=== PATIENT | female | born 1940 ===

== ENCOUNTER 2017-04-28 12:35 | Emergency (ER) | payer MEDICARE ==
[2017-04-28 12:35] VITALS: BMI 23.6
[2017-04-28 12:43] VITALS: BP 116/68; PULSE 60; RESP 16; TEMP 97.3; O2SAT 97
--- NOTE | 2017-04-28 12:53 | C.PDOC ---
History Of Present Illness 76 year old female presents to the ED with complaints of right ankle pain and swelling. Patient's niece states one week ago patient injured ankle while walking and patient noted yesterday injuring her right ankle again while cleaning the house. She notes a history of hypertension but denies any medical issues, LOC, or other complaints at this time. Time Seen by Provider: 04/28/17 12:50 Chief Complaint (Nursing): Lower Extremity Problem/Injury History Per: Patient, Family (niece ) History/Exam Limitations: no limitations Onset/Duration Of Symptoms: Days (original trauma one week ago, new trauma yesterday ) Current Symptoms Are (Timing): Still Present Recent travel outside of the [place]: No - Ankle/Foot Description Of Injury: Twisted Past Medical History Reviewed: Historical Data, Nursing Documentation, Vital Signs Vital Signs: Last Vital Signs Temp 97.3 F L 04/28/17 12:40 Pulse 60 04/28/17 12:40 Resp 16 04/28/17 12:40 BP 116/68 04/28/17 12:40 Pulse Ox 97 04/28/17 14:13 - Medical History PMH: Gall Bladder Disease, HTN, Hypothyroidism, Chronic Kidney Disease (BLADDER LIFT) Surgical History: Cholecystectomy - [facility] Procedures CLOSED ENDOSCOPIC BIOPSY OF LARGE INTESTINE (08/04/15) PERCUTAN NEEDLE BIOPSY OF BREAST (02/02/14) Family History: States: Unknown Family Hx - Social History Hx Alcohol Use: No Hx Substance Use: No - Immunization History Hx Tetanus Toxoid Vaccination: No Hx Influenza Vaccination: Yes Hx Pneumococcal Vaccination: Yes Review Of Systems Constitutional: Negative for: Fever, Chills, Sweats Cardiovascular: Negative for: Chest Pain, Palpitations Respiratory: Negative for: Cough, Shortness of Breath Gastrointestinal: Negative for: Nausea, Vomiting, Abdominal Pain, Diarrhea Musculoskeletal: Positive for: Other (right ankle pain and swelling ) Physical Exam - Physical Exam Appears: Non-toxic, No Acute Distress Skin: Warm, Dry Head: Atraumatic Oral Mucosa: Moist Neck: Supple Chest: Symmetrical, No Deformity Cardiovascular: Rhythm Regular Extremity: Normal ROM, Tenderness (tenderness to lateral malleolus ), No Pedal Edema, No Calf Tenderness, Capillary Refill (good capillary refill ), Swelling ( swelling to left malleolus ) Neurological/Psych: Oriented x3 ED Course And Treatment O2 Sat by Pulse Oximetry: 97 (room air ) - Other Rad Right Ankle X-Ray X-Ray: Viewed By Me, Read By Radiologist Interpretation: IMPRESSION: No acute fracture or bone destruction. Prominent plantar calcaneal spur and large dorsal calcaneal enthesophyte Disposition Counseled Patient/Family Regarding: Studies Performed, Diagnosis - Disposition Disposition: HOME/ ROUTINE Disposition Time: 14:09 Condition: STABLE Prescriptions: Naproxen [Naprosyn] 1 tab PO BID PRN #25 tab PRN Reason: Pain Instructions: Ankle Sprain (ED) Forms: Gen Discharge Inst Nepali - POA Present On Arrival: None - Clinical Impression Clinical Impression: Right ankle sprain - Scribe Statement The provider has reviewed the documentation as recorded by the Scribe Jada Wiley All medical record entries made by the Kirstyibreginaldo were at my direction and personally dictated by me. I have reviewed the chart and agree that the record accurately reflects my personal performance of the history, physical exam, medical decision making, and the department course for this patient. I have also personally directed, reviewed, and agree with the discharge instructions and disposition.
--- NOTE | 2017-04-28 13:49 | RAD ---
PROCEDURE: Right Ankle Radiographs. HISTORY: pain and swelling COMPARISON: None FINDINGS: BONES: There is no acute fracture or bone destruction. There is diffuse bone demineralization. There is a prominent plantar calcaneal spur. There is a large dorsal calcaneal enthesophyte. JOINTS: There is mild degenerative osteoarthrosis in the talonavicular joints. . Ankle mortise maintained. Talar dome intact SOFT TISSUES: Normal. OTHER FINDINGS: None. IMPRESSION: No acute fracture or bone destruction. Prominent plantar calcaneal spur and large dorsal calcaneal enthesophyte.
== END 2017-04-28 14:28 | disposition home or self-care (01) ==
LOC: C.ER 12:35
DX: S93.401A Sprain of unspecified ligament of right ankle, initial encounter (principal); X58.XXXA Exposure to other specified factors, initial encounter; Y93.E9 Activity, other interior property and clothing maintenance; Y92.009 Unspecified place in unspecified non-institutional (private) residence as the place of occurrence of the external cause

== ENCOUNTER 2018-09-24 11:51 | Emergency (ER) | payer MEDICARE ==
[2018-09-24 11:51] VITALS: BMI 23.6
[2018-09-24] MEDS ORDERED: Tetanus/Diphtheria Toxoids 0.5 ml Syringe IM ONE ×2 (12:21→13:19)
[2018-09-24] MEDS ORDERED: Lidocaine 1% Inj (20ml) INFIL STA (13:27)
[2018-09-24] MEDS ORDERED: Lidocaine Hydrochloride 5 ML INJ ONE (13:48)
--- NOTE | 2018-09-24 13:49 | CT ---
Date of service: 09/24/2018 PROCEDURE: CT HEAD WITHOUT CONTRAST. HISTORY: HEAD INJURY, R/O BLEED/FX COMPARISON: None available. TECHNIQUE: Axial computed tomography images were obtained through the head/brain without intravenous contrast. Radiation dose: Total exam DLP = 886.14 mGy-cm. This CT exam was performed using one or more of the following dose reduction techniques: Automated exposure control, adjustment of the mA and/or kV according to patient size, and/or use of iterative reconstruction technique. FINDINGS: HEMORRHAGE: No intracranial hemorrhage. BRAIN: Mild diffuse atrophy with prominence of the ventricles and sulci noted. No mass effect or edema. Bilateral basal ganglia calcifications. Dense intracranial atherosclerosis. The jacome-white matter differentiation appears intact. Please note that MRI with diffusion imaging is more sensitive in the detection of acute ischemic event. VENTRICLES: No hydrocephalus. CALVARIUM: Unremarkable. PARANASAL SINUSES: Unremarkable as visualized. No significant inflammatory changes. MASTOID AIR CELLS: Unremarkable as visualized. No inflammatory changes. OTHER FINDINGS: Frontal scalp soft tissue swelling with overlying bandage. IMPRESSION: Frontal scalp soft tissue swelling with overlying bandage. No acute intracranial pathology identified.
[2018-09-24] MEDS ORDERED: Bacitracin 500 Units/gm Oint Foilpak UD TOP ONE (14:20)
[2018-09-24] MEDS ORDERED: Bacitracin 500 Units/gm Oint Foilpak UD ONE (14:24)
--- NOTE | 2018-09-24 14:28 | C.PDOC ---
History Of Present Illness 78-year-old female presents to the ED for evaluation after she tripped and fell today. Patient states she hit her forehead on the stairs while going down steps and sustained a laceration to the area. She denies loss of consciousness, dizziness, headache, Vision change, neck pain. She states she is not up to date with her tetanus immunization, and denies use of blood thinners. Time Seen by Provider: 09/24/18 12:05 Chief Complaint (Nursing): Abnormal Skin Integrity History Per: Patient History/Exam Limitations: no limitations Onset/Duration Of Symptoms: Hrs Current Symptoms Are (Timing): Still Present Additional History Per: Patient Past Medical History Reviewed: Historical Data, Nursing Documentation, Vital Signs Vital Signs: Last Vital Signs Temp 97.1 F L 09/24/18 12:13 Pulse 64 09/24/18 12:13 Resp 20 09/24/18 12:13 BP 120/74 09/24/18 12:13 Pulse Ox 98 09/24/18 12:13 - Medical History PMH: Gall Bladder Disease, HTN, Hypercholesterolemia, Hypothyroidism, Chronic Kidney Disease (BLADDER LIFT) Surgical History: Cholecystectomy - [facility] Procedures CLOSED ENDOSCOPIC BIOPSY OF LARGE INTESTINE (08/04/15) PERCUTAN NEEDLE BIOPSY OF BREAST (02/02/14) Family History: States: Unknown Family Hx - Social History Hx Alcohol Use: No Hx Substance Use: No - Immunization History Hx Tetanus Toxoid Vaccination: No Hx Influenza Vaccination: Yes Hx Pneumococcal Vaccination: Yes Review Of Systems Eyes: Negative for: Vision Change Musculoskeletal: Negative for: Neck Pain Skin: Positive for: Other (forehead laceration ) Neurological: Negative for: Dizziness, Other (LOC ) Physical Exam - Physical Exam Appears: Non-toxic, No Acute Distress, Other (comfortable ) Skin: Normal Color, Warm, Dry Head: Swelling, Laceration (3cm, to center of forehead with underlying swelling ) Eye(s): bilateral: Normal Inspection, PERRL, EOMI, Other (negative racoon eyes ) Ear(s): Left: Normal, Bilateral: Other (negative starks signs ) Nose: No Deformity, No Septal Hematoma Oral Mucosa: Moist Teeth: Normal Dentition, No Loose Gingiva: Normal Appearing Neck: Normal ROM, No Midline Cervical Tenderness, No Paracervical Tenderness, Supple Chest: Symmetrical, No Deformity, No Tenderness Cardiovascular: Rhythm Regular, No Murmur Respiratory: Normal Breath Sounds, No Rales, No Rhonchi, No Wheezing Gastrointestinal/Abdominal: Soft, No Tenderness, No Guarding, No Rebound Extremity: Normal ROM, Capillary Refill (less than 2 seconds ) Neurological/Psych: Oriented x3, Normal Speech, Normal Cognition Gait: Steady ED Course And Treatment O2 Sat by Pulse Oximetry: 98 (on RA) Pulse Ox Interpretation: Normal - CT Scan/US CT Other Rad Studies (CT/US): Interpreted By Me, Read By Radiologist, Radiology Report Reviewed Progress Note: CT Head ordered and reviewed. Bacitracin TOP, Lidocaine 1%, Tetanus immunization IM, and Tylenol PO given. Laceration - Laceration Repair forehead Description Of Wound: Linear Wound Cleansed With: Betadine, Sterile Saline Anesthesia: Lidocaine 1% (3ml local infiltrate ) Wound Examination: Irrigated With Saline, No FB With Wound Exploration Suture Technique And Material Used: Nylon (five, dermal, 5-0), Vicryl (one, subcutaneous, 5-0 ) Wound Complexity: Intermediate Disposition Counseled Patient/Family Regarding: Studies Performed, Diagnosis, Need For Followup, Rx Given - Disposition Referrals: Gertrudis Pham MD [Medical Doctor] - Disposition: HOME/ ROUTINE Disposition Time: 14:30 Condition: STABLE Additional Instructions: SEGUIR CON RODRIGUEZ MDICO EN 1-2 MACDONALD ELIMINACIN DE LA SUTURA EN 5-7 MACDONALD UTILICE TYLENOL CEDRIC SE NECESITA PARA EL DOLOR VUELVA A LA ULICES DE EMERGENCIA SI TIENE ALGUNA SESIN SOBRE LOS SNTOMAS FOLLOW UP WITH YOUR DOCTOR IN 1-2 DAYS SUTURE REMOVAL IN 5-7 DAYS USE TYLENOL NEEDED FOR PAIN RETURN TO EMERGENCY ROOM IF YOU HAVE ANY CONCERNING SYMPTOMS Prescriptions: Acetaminophen [Tylenol 325mg tab] 650 mg PO Q6 PRN #30 tab PRN Reason: pain/fever Instructions: Closed Head Injury (DC), Laceration Repair With Stitches (DC) Forms: [employer] (Maldivian) Print Language: YI - POA Present On Arrival: Falls Or Trauma - Clinical Impression Clinical Impression: Laceration of forehead, Contusion, Closed head injury - Scribe Statement The provider has reviewed the documentation as recorded by the Scribe (Zakiya Padilla) Provider Attestation: All medical record entries made by the Scribe were at my direction and personally dictated by me. I have reviewed the chart and agree that the record accurately reflects my personal performance of the history, physical exam, medical decision making, and the department course for this patient. I have also personally directed, reviewed, and agree with the discharge instructions and disposition.
[2018-09-24 14:33] VITALS: BP 114/73; PULSE 57; RESP 18; TEMP 98
[2018-09-24 17:31] VITALS: O2SAT 98
== END 2018-09-24 14:37 | disposition home or self-care (01) ==
LOC: C.ER 11:51
DX: S01.81XA Laceration without foreign body of other part of head, initial encounter (principal); W10.9XXA Fall (on) (from) unspecified stairs and steps, initial encounter; Y92.9 Unspecified place or not applicable; Z23 Encounter for immunization

== ENCOUNTER 2018-10-01 09:35 | Emergency (ER) | payer MEDICARE ==
[2018-10-01 09:35] VITALS: BMI 23.6
[2018-10-01 09:45] VITALS: BP 129/72; PULSE 55; RESP 18; TEMP 97.5; O2SAT 99
--- NOTE | 2018-10-01 10:03 | C.PDOC ---
History Of Present Illness 78 year old female presents to the ED for evaluation of x4 sutures placed on the center of the forehead 1 week ago after a fall. No medical complaints at this time. Denies fever, chills, drainage, and any other associated symptoms. Time Seen by Provider: 10/01/18 09:52 Chief Complaint (Nursing): Suture/Staple Removal History Per: Patient History/Exam Limitations: no limitations Past Medical History Reviewed: Historical Data, Nursing Documentation, Vital Signs Vital Signs: Last Vital Signs Temp 97.5 F L 10/01/18 09:43 Pulse 55 L 10/01/18 09:43 Resp 18 10/01/18 09:43 BP 129/72 10/01/18 09:43 Pulse Ox 99 10/01/18 09:43 - Medical History PMH: Gall Bladder Disease, HTN, Hypercholesterolemia, Hypothyroidism, Chronic Kidney Disease (BLADDER LIFT) Surgical History: Cholecystectomy - [facility] Procedures CLOSED ENDOSCOPIC BIOPSY OF LARGE INTESTINE (08/04/15) PERCUTAN NEEDLE BIOPSY OF BREAST (02/02/14) Family History: States: Unknown Family Hx - Social History Hx Alcohol Use: Yes Hx Substance Use: No - Immunization History Hx Tetanus Toxoid Vaccination: Yes Hx Influenza Vaccination: No Hx Pneumococcal Vaccination: No Review Of Systems Constitutional: Negative for: Fever, Chills Skin: Positive for: Other ((+) x4 suture removal. (-) discharge. ) Physical Exam - Physical Exam Appears: Well, Non-toxic, No Acute Distress Skin: Normal Color, Warm, Dry, Other (x4 sutures on the center of the forehead. skin intact. (-) no surrounding erythema. site CDI. ) Head: Atraumatic, Normacephalic Eye(s): bilateral: Normal Inspection, PERRL, EOMI Neurological/Psych: Oriented x3, Normal Speech ED Course And Treatment O2 Sat by Pulse Oximetry: 99 (RA) Pulse Ox Interpretation: Normal Medical Decision Making Medical Decision Making: Conversation translated by daughter. Progress/Update: 10:01 x4 sutures removed. Patient tolerated removal well. Patient stable for discharge home. Advised patient to follow up with PMD as needed. Disposition - Disposition Disposition: HOME/ ROUTINE Disposition Time: 10:01 Condition: STABLE Instructions: Stitches Removal Forms: [employer] (Croatian), Gen Discharge Inst Croatian Print Language: TOGOLESE - POA Present On Arrival: None - Clinical Impression Clinical Impression: Visit for suture removal - Scribe Statement The provider has reviewed the documentation as recorded by the Scribe (Aaliyah Arroyo) Provider Attestation: All medical record entries made by the Scribe were at my direction and personally dictated by me. I have reviewed the chart and agree that the record accurately reflects my personal performance of the history, physical exam, medical decision making, and the department course for this patient. I have also personally directed, reviewed, and agree with the discharge instructions and disposition.
== END 2018-10-01 10:11 | disposition home or self-care (01) ==
LOC: C.ER 09:35
DX: Z48.02 Encounter for removal of sutures (principal); E03.9 Hypothyroidism, unspecified; I12.9 Hypertensive chronic kidney disease with stage 1 through stage 4 chronic kidney disease, or unspecified chronic kidney disease; N18.9 Chronic kidney disease, unspecified; E78.00 Pure hypercholesterolemia, unspecified